=== PATIENT | female | born 1940 | race Caucasian/White ===

== ENCOUNTER 2018-10-18 17:58 | Emergency (ER) | payer MEDICARE, BC ==
[2018-10-18] MEDS ORDERED: Diphtheria,Pertussis(Acell),Tetanus Vaccine 0.5 ML Syringe IM ONE (18:03)
--- NOTE | 2018-10-18 18:08 | EDM.PDOC ---
ED HPI GENERAL MEDICAL PROBLEM - General Chief Complaint: Neuro Symptoms/Deficits Stated Complaint: FELL AND HIT HEAD Time Seen by Provider: 10/18/18 18:05 Source of Information: Reports: Patient History Limitations: Reports: No Limitations - History of Present Illness INITIAL COMMENTS - FREE TEXT/NARRATIVE: HISTORY AND PHYSICAL: History of present illness: Patient is a 78-year-old female who presents to the emergency room with complaints of right ear pain, headache pain, dizziness and a laceration to the posterior scalp. Patient states that they're doing construction outside her house. She was outside walking when she took a few steps backwards and had tripped over some heights resulting in a fall. She hit the back of her head on some gravel and stand resulting in a laceration to the posterior scalp. She does have some dizziness and a headache now. Patient denies any fever, chills, headache, change in vision, syncope or near syncope. Denies any chest pain, back pain, shortness of breath or cough. Denies any GI or symptoms. Patient has been eating and drinking appropriately. Review of systems: As per history of present illness and below otherwise all systems reviewed and negative. Past medical history: As per history of present illness and as reviewed below otherwise noncontributory. Surgical history: As per history of present illness and as reviewed below otherwise noncontributory. Social history: See social history for further information Family history: As per history of present illness and as reviewed below otherwise noncontributory. Physical exam: General: Well developed and well nourished 78-year-old female. Alert and oriented. Nontoxic appearing and in no acute distress. HEENT: Posterior abrasion to scalp left occipital area with mild tenderness with palpation, normocephalic, pupils equal and reactive bilaterally, negative for conjunctival pallor or scleral icterus, mucous membranes moist. Unable to visualize the right TM due to cerumen, left TM normal, tenderness with palpation surrounding the ear. No soft tissue swelling or erythema at the site. Throat clear, neck supple, nontender, trachea midline. No drooling or trismus noted. No meningeal signs. No hot potato voice noted. Lungs: Clear to auscultation, breath sounds equal bilaterally, chest nontender. Heart: S1S2, regular rate and rhythm without overt murmur Abdomen: Soft, nondistended, nontender. Negative for masses or hepatosplenomegaly. Negative for costovertebral tenderness. Pelvis: Stable nontender. Genitourinary: Deferred. Rectal: Deferred. C-spine/Back: No pinpoint vertebral tenderness upon palpation. No crepitus, step -offs or obvious deformities. Patient is able to lift her toes up towards her nose and pushed downward with equal strength bilaterally. She denies any numbness, tingling or saddle paresthesias. Denies any urinary or fecal incontinence. Skin: Intact, warm, dry. No lesions or rashes noted. Extremities: Moves all extremities per self without difficulty or deficits, negative for cords or calf pain. Neurovascular unremarkable. Neuro: Awake, alert, oriented. Cranial nerves II through XII unremarkable. Cerebellum unremarkable. Motor and sensory unremarkable throughout. Exam nonfocal. Notes: No intracranial hemorrhage or mass lesion. Small hematoma in the scalp overlying the left occipital area. No acute fracture or traumatic malalignment there is some mild degenerative disc disease. Probable mastoiditis and otitis media of the right. Lab work is unremarkable. Dr Sandoval, E[facility] of [facility], was consulted on this case. He states that the patient should do well with outpatient therapy of tramadol and Augmentin. Follow-up with her primary care provider or ENT if she continues to have the ear pain. This information was shared with the patient and family member at bedside. Supportive care measures were reviewed and discussed. Voices understanding and is agreeable to plan of care. Denies any further questions or concerns at this time. Diagnostics: Head CT, cervical spine CT, one view chest, one view pelvis, CBC, CMP, PT/INR Therapeutics: Wound care, Tdap, Tramadol, Augmentin Prescription: Tramadol, Augmentin Impression: Mastoiditis Right otitis media Head Injury Abrasion Plan: 1. Rest and ice the painful areas as able. 2. Tylenol as needed for pain. Tramadol for moderate to severe pain. This medication may cause drowsiness a do not take it will driving her needing to be functioning outside of the house. 3. Please follow-up ENT and/or primary care provider as we discussed. Return to the ED as needed and as discussed. Definitive disposition and diagnosis as appropriate pending reevaluation and review of above. laceration to back of the head Pain Score (Numeric/FACES): 8 - Related Data Allergies Allergy/AdvReac Type Severity Reaction Status Date / Time Kxzthah-[id number]-Bpd Reductase Allergy Leg Cramps Verified 10/18/18 18:18 Inhibitor Home Meds: Home Meds Acetaminophen [Tylenol Arthritis] 650 mg PO DAILY PRN 03/27/18 [History] Cholecalciferol (Vitamin D3) [Vitamin D] 5,000 unit PO DAILY 03/27/18 [History] Cyanocobalamin (Vitamin B-12) [Vitamin B-12] 1,000 mcg PO DAILY 03/27/18 [ History] Liraglutide [Victoza 3-Andre] 1.2 mg SUBCUT DAILY 03/27/18 [History] Lisinopril 40 mg DAILY 03/27/18 [History] Magnesium 400 mg PO DAILY 03/27/18 [History] Triamterene/Hydrochlorothiazid [Triamterene-HCTZ 37.5-25 MG] 25 - 37.5 mg PO DAILY 03/27/18 [History] metFORMIN [Glucophage XR] 750 mg PO BID 03/27/18 [History] Amoxicillin/Clavulanate K [Augmentin 875-125 MG] 1 tab PO BID 1 Days #20 tablet 10/18/18 [Rx] Past Medical History HEENT History: Reports: Impaired Vision Cardiovascular History: Reports: Afib, Hypertension [employer] History: Reports: Neurological History: Reports: Migraines Endocrine/Metabolic History: Reports: Diabetes, Type II, Multinodular Thyroid, Obesity/BMI 30+ - Infectious Disease History Infectious Disease History: Reports: Chicken Pox - Past Surgical History HEENT Surgical History: Reports: Cataract Surgery GI Surgical History: Reports: Appendectomy, Cholecystectomy, Colonoscopy Female Surgical History: Reports: Tubal Ligation Endocrine Surgical History: Reports: Thyroid Biopsy Musculoskeletal Surgical History: Reports: Knee Replacement Social & Family History - Family History Family Medical History: Noncontributory ED ROS GENERAL - Review of Systems Review Of Systems: ROS reveals no pertinent complaints other than HPI. ED EXAM, HEAD INJURY - Physical Exam Exam: See Below (See dictation) Course - Vital Signs Last Recorded V/S: Last Vital Signs Temp 98.4 F 10/18/18 18:02 Pulse 82 10/18/18 18:42 Resp 20 10/18/18 18:42 BP 182/82 H 10/18/18 18:42 Pulse Ox 97 10/18/18 18:42 - Orders/Labs/Meds Orders: Active Orders 24 hr Category Date Time Status Vaccines to be Administered [RC] PER UNIT ROUTINE Care 10/18/18 18:04 Active Labs: Laboratory Tests 10/18/18 10/18/18 10/18/18 Range/Units 18:18 18:18 18:18 WBC 5.75 (4.0-11.0) K/uL RBC 4.14 L (4.30-5.90) M/uL Hgb 12.7 (12.0-16.0) g/dL Hct 38.3 (36.0-46.0) % MCV 92.5 (80.0-98.0) fL MCH 30.7 (27.0-32.0) pg MCHC 33.2 (31.0-37.0) g/dL RDW Std Deviation 46.0 (28.0-62.0) fl RDW Coeff of Radha 14 (11.0-15.0) % Plt Count 191 (150-400) K/uL MPV 8.90 (7.40-12.00) fL Neut % (Auto) 49.9 (48.0-80.0) % Lymph % (Auto) 38.3 (16.0-40.0) % [place] % (Auto) 8.3 (0.0-15.0) % Eos % (Auto) 2.8 (0.0-7.0) % Baso % (Auto) 0.7 (0.0-1.5) % Neut # (Auto) 2.9 (1.4-5.7) K/uL Lymph # (Auto) 2.2 (0.6-2.4) K/uL [place] # (Auto) 0.5 (0.0-0.8) K/uL Eos # (Auto) 0.2 (0.0-0.7) K/uL Baso # (Auto) 0.0 (0.0-0.1) K/uL Nucleated RBC % 0.0 /100WBC Nucleated RBCs # 0 K/uL INR 0.96 Sodium 139 (136-145) mmol/L Potassium 4.3 (3.5-5.1) mmol/L Chloride 103 (98-107) mmol/L Carbon Dioxide 27.1 (21.0-32.0) mmol/L BUN 24 H (7.0-18.0) mg/dL Creatinine 1.0 (0.6-1.0) mg/dL Est Cr Clr Drug Dosing 38.35 mL/min Estimated GFR (MDRD) 53.6 ml/min Glucose 140 H (74-106) mg/dL Calcium 9.2 (8.5-10.1) mg/dL Total Bilirubin 0.2 (0.2-1.0) mg/dL AST 26 (15-37) IU/L ALT 53 (14-63) IU/L Alkaline Phosphatase 71 (46-116) U/L Total Protein 7.1 (6.4-8.2) g/dL Albumin 3.8 (3.4-5.0) g/dL Globulin 3.3 (2.6-4.0) g/dL Albumin/Globulin Ratio 1.2 (0.9-1.6) Meds: Medications Discontinued Medications Generic Name Dose Route Start Last Admin Trade Name Freq PRN Reason Stop Dose Admin Amoxicillin/Clavulanate Potassium 1 tab 10/18/18 19:33 Augmentin 875 Mg/125 Mg PO 10/18/18 19:34 ONETIME ONE Diphtheria/Tetanus/Acell Pertussis 0.5 ml 10/18/18 18:03 10/18/18 18:39 Adacel IM 10/18/18 18:04 0.5 ml .ONCE ONE Administration Tramadol HCl 50 mg 10/18/18 19:33 Ultram PO 10/18/18 19:34 ONETIME ONE Departure - Departure Time of Disposition: 19:48 Disposition: Home, Self-Care 01 Clinical Impression: Abrasion Head injury Qualifiers: Encounter type: initial encounter Qualified Code(s): S09.90XA - Unspecified injury of head, initial encounter Otitis media Qualifiers: Otitis media type: suppurative Chronicity: acute Laterality: right Recurrence: non-recurrent Spontaneous tympanic membrane rupture: without spontaneous rupture Qualified Code(s): H66.001 - Acute suppurative otitis media without spontaneous rupture of ear drum, right ear Mastoiditis Qualifiers: Laterality: right Qualified Code(s): H70.91 - Unspecified mastoiditis, right ear - Discharge Information Prescriptions: Amoxicillin/Clavulanate K [Augmentin 875-125 MG] 1 tab PO BID 1 Days #20 tablet Instructions: Head Injury, Adult, [id number], Concussion, Adult, [id number] , Otitis Media, Adult Referrals: PCP,Unknown [Primary Care Provider] - Forms: ED Department Discharge Additional Instructions: The following information is given to patients seen in the emergency department who are being discharged to home. This information is to outline your options for follow-up care. We provide all patients seen in our emergency department with a follow-up referral. The need for follow-up, as well as the timing and circumstances, are variable depending upon the specifics of your emergency department visit. If you don't have a primary care physician on staff, we will provide you with a referral. We always advise you to contact your personal physician following an emergency department visit to inform them of the circumstance of the visit and for follow-up with them and/or the need for any referrals to a consulting specialist. The emergency department will also refer you to a specialist when appropriate. This referral assures that you have the opportunity for follow-up care with a specialist. All of these measure are taken in an effort to provide you with optimal care, which includes your follow-up. Under all circumstances we always encourage you to contact your private physician who remains a resource for coordinating your care. When calling for follow-up care, please make the office aware that this follow-up is from your recent emergency room visit. If for any reason you are refused follow-up, please contact the [facility] Emergency Department at and asked to speak to the emergency department charge nurse. [facility] [address] [place] [address] [facility] [address] [place] [id number] [facility]: [place] [id number] 1. Rest and ice the painful areas as able. 2. Tylenol as needed for pain. Tramadol for moderate to severe pain. This medication may cause drowsiness a do not take it will driving her needing to be functioning outside of the house. 3. Please follow-up ENT and/or primary care provider as we discussed. Return to the ED as needed and as discussed. - My Orders Last 24 Hours: My Active Orders 10/18/18 18:04 Vaccines to be Administered [RC] PER UNIT ROUTINE - Assessment/Plan Last 24 Hours: My Active Orders 10/18/18 18:04 Vaccines to be Administered [RC] PER UNIT ROUTINE
--- NOTE | 2018-10-18 19:06 | CT ---
INDICATION: Trauma. COMPARISON: None. TECHNIQUE: CT head without intravenous contrast; coronal and sagittal reformats. FINDINGS: No evidence of intracranial hemorrhage. No mass lesions. No evidence of shift of the midline structures. The calvarium is unremarkable. Small hematoma identified in the scalp overlying the left occipital area. IMPRESSION: 1. No intracranial hemorrhage or mass lesions. 2. No evidence of shift of the midline structures. 3. Hematoma in the scalp overlying the left occipital area. Please note that all CT scans at this facility use dose modulation, iterative reconstruction, and/or weight-based dosing when appropriate to reduce radiation dose to as low as reasonably achievable. Dictated by Ronni Acevedo MD @ Oct 18 2018 7:02PM Signed by Dr. Ronni Acevedo @ Oct 18 2018 7:05PM
--- NOTE | 2018-10-18 19:08 | CT ---
INDICATION: Pain after fall. COMPARISON: None. TECHNIQUE: Multi detector noncontrast images. Axial coronal and sagittal reformats. FINDINGS: Fluid in the right middle ear and mastoid. No skullbase fracture appreciated. Left side is well aerated. Anatomic alignment of the spine with kyphosis at the cervicothoracic junction likely positional. Mild chronic degenerative disc disease and facet arthrosis. 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 No bony encroachment of central canal or neural foramina. No finding of significance in the visualized lung parenchyma. Small sub pleural nodule incompletely assessed in the left lung apex. IMPRESSION: No acute fracture or traumatic malalignment. Mild degenerative disc disease and facet arthrosis. Probable mastoiditis and otitis media on the right. Clinical correlation recommended. Please note that all CT scans at this facility use dose modulation, iterative reconstruction, and/or weight-based dosing when appropriate to reduce radiation dose to as low as reasonably achievable. Dictated by Gelacio Means MD @ Oct 18 2018 7:05PM Signed by Dr. Gelacio Means @ Oct 18 2018 7:08PM
--- NOTE | 2018-10-18 19:17 | CR ---
INDICATION: Chest pain following fall TECHNIQUE: Chest radiograph 1 view COMPARISON: 10/11/2018 FINDINGS: Severe degradation of image quality noted due to body habitus. Mediastinum: The mediastinum is normal in appearance. Mild cardiomegaly is noted without interval change. Lung: Both lungs are unremarkable in appearance. No sign of pleural effusion seen. No pneumothorax is identified. IMPRESSION: 1. Mild cardiomegaly is noted without interval change. Dictated by Lion Hall MD @ 10/18/2018 7:15:02 PM Dictated by: Lion Hall MD @ 10/18/2018 19:16:15 (Electronically Signed)
--- NOTE | 2018-10-18 19:19 | CR ---
INDICATION: Pelvis pain following fall TECHNIQUE: Pelvis radiograph 1 view COMPARISON: None FINDINGS: Moderate degradation of image quality noted due to body habitus. Bone: No acute fractures or aggressive bone lesions are identified. Joint: The hip joint is unremarkable. The visualized sacroiliac joints are unremarkable in appearance. The pubic symphysis is normal in appearance. Soft tissue: Unremarkable. The visualized bowel gas pattern of the pelvis is unremarkable in appearance. No radiopaque foreign bodies are seen. IMPRESSION: 1. No acute osseous injuries or abnormalities are noted. Dictated by: Lion Hall MD @ 10/18/2018 19:17:18 (Electronically Signed)
[2018-10-18] MEDS ORDERED: Amoxicillin/Clavulanate K 875-125 MG Tab PO ONE (19:33)
[2018-10-18] MEDS ORDERED: traMADol 50 MG Tab PO ONE (19:33)
== END 2018-10-18 20:17 | disposition home or self-care (01) ==
LOC: MW.ED 17:58
DX: S01.01XA Laceration without foreign body of scalp, initial encounter (principal); H66.001 Acute suppurative otitis media without spontaneous rupture of ear drum, right ear; H70.91 Unspecified mastoiditis, right ear; I10 Essential (primary) hypertension; I48.91 Unspecified atrial fibrillation; E11.9 Type 2 diabetes mellitus without complications; E66.9 Obesity, unspecified; Z23 Encounter for immunization; Z88.8 Allergy status to other drugs, medicaments and biological substances; Z79.899 Other long term (current) drug therapy; Z79.84 Long term (current) use of oral hypoglycemic drugs; Z98.49 Cataract extraction status, unspecified eye; Z90.49 Acquired absence of other specified parts of digestive tract; Z98.51 Tubal ligation status; W10.9XXA Fall (on) (from) unspecified stairs and steps, initial encounter
CPT/HCPCS: 36415; 70450; 71045; 72125; 72170; 80053; 85025; 85610; 90471; 90715; 99284; A9270